=== PATIENT | female | born 1975 | race Caucasian/White ===

== ENCOUNTER → 2022-02-11 11:36 | Outpatient (CLI) | payer BC, SELFPAY ==
[2022-02-11 12:00] LABS: Add Manual Diff / Slide Review NO; Basophils Absolute Auto 0 /uL (0-100); Basophils Percent Auto 0.4 % (0-2); Eosinophils Absolute Auto 300 /uL (0-450); Eosinophils Percent Auto 4.9 % (2-4); Hemoglobin 12.3 g/dL (12.0-16.0); Lymphocytes Absolute Auto 2000 /uL (1100-4500); Lymphocytes Percent Auto 36.2 % (25-40); Mean Corpuscular HGB Conc 33.1 % (30-36); Mean Corpuscular Hemoglobin 29.2 PG (26-34); Mean Corpuscular Volume 88.2 fL (80-100); Monocytes Absolute Auto 300 /uL (0-900); Monocytes Percent Auto 6.2 % (3-14); Neutrophils Absolute Auto 2900 /uL (1500-7000); Neutrophils Percent Auto 52.3 % (50-75); Platelet Count 277 X10^3/uL (150-400); Red Cell Distribution Width 13.5 % (11.6-14.8); White Blood Cell Count 5.5 X10^3/uL (4.5-11.0)
[2022-02-11 13:25] LABS: Alanine Aminotransferase 17 IU/L (<35); Albumin 4.1 g/dL (3.5-5.0); Albumin Globulin Ratio 1.5 (1.0-2.8); Alkaline Phosphatase 95 U/L (38-126); Aspartate Aminotransferase 28 IU/L (14-36); BUN Creatinine Ratio 11.9 (6-22); Bilirubin Total 0.5 mg/dL (0.2-1.3); Blood Urea Nitrogen 8 mg/dL (7-17); Calcium 9.1 mg/dL (8.4-10.2); Carbon Dioxide 29 mmol/L (22-32); Chloride 103 mmol/L (98-107); Cholesterol 159 mg/dL (140-199); Estimated Glomerular Filt Rate > 60 mL/min (>60); Globulin 2.7 g/dL (1.7-4.1); Glucose 94 mg/dL (70-100); HDL Cholesterol 76 mg/dL (40-60); HEMOLYSIS < 15 (0-50); LDL Cholesterol Calculated 71 mg/dL (<100); Potassium 4.5 mmol/L (3.4-5.1); Sodium 136 mmol/L (137-145); Total Protein 6.8 g/dL (6.3-8.2); Triglycerides 58 mg/dL (35-150)
[2022-02-11 13:50] LABS: TSH w/ Reflex to FT4 < 0.02 uIU/mL (0.47-4.68)
[2022-02-11 14:21] LABS: Free T4, Direct Thyroxine 2.04 ng/dL (0.78-2.19)
== END ==
PROVIDERS: PCP Family Medicine; Referring Provider Family Medicine; Visit Provider Family Medicine
DX: E03.9 Hypothyroidism, unspecified (principal); F43.10 Post-traumatic stress disorder, unspecified
CPT/HCPCS: 36415; 80053; 80061; 84439; 84443; 85025

== ENCOUNTER 2022-04-14 20:26 | Emergency (ER) | payer BC, OTHER, SELFPAY ==
[2022-04-14 20:27] VITALS: BP 157/85; PULSE 72; RESP 20; TEMP 36.6; O2SAT 98; BMI 21.9
[2022-04-14 21:00] LABS: UR Morphine/Opiate cutoff 300 Negative (Negative); Ur Creatinine Normal (Normal); Ur Specific Gravity Normal (Normal); Urine Amphetamines Negative (Negative); Urine Barbiturates Negative (Negative); Urine Benzodiazepines Negative (Negative); Urine Cocaine Negative (Negative); Urine MDMA Negative (Negative); Urine Methadone Negative (Negative); Urine Methamphetamines Negative (Negative); Urine Oxycodone Negative (Negative); Urine Phencyclidine Negative (Negative); Urine Tetrahydrocannabinol Positive (Negative); Urine Tricyclic Antidepressant Negative (Negative); Urine pH Normal (Normal)
[2022-04-14 21:13] LABS: Add Manual Diff / Slide Review NO; Basophils Absolute Auto 100 /uL (0-100); Basophils Percent Auto 0.7 % (0-2); Eosinophils Absolute Auto 200 /uL (0-450); Eosinophils Percent Auto 2.4 % (2-4); Hematocrit 37.9 % (36-46); Hemoglobin 12.7 g/dL (12.0-16.0); Lymphocytes Absolute Auto 2600 /uL (1100-4500); Lymphocytes Percent Auto 33.3 % (25-40); Mean Corpuscular HGB Conc 33.5 % (30-36); Mean Corpuscular Hemoglobin 30.3 PG (26-34); Mean Corpuscular Volume 90.5 fL (80-100); Monocytes Absolute Auto 400 /uL (0-900); Monocytes Percent Auto 5.8 % (3-14); Neutrophils Absolute Auto 4400 /uL (1500-7000); Neutrophils Percent Auto 57.8 % (50-75); Platelet Count 263 X10^3/uL (150-400); Red Blood Cell Count 4.19 X10^6/uL (4.0-5.2); Red Cell Distribution Width 13.9 % (11.6-14.8); White Blood Cell Count 7.7 X10^3/uL (4.5-11.0)
[2022-04-14 21:18] LABS: Acetaminophen < 10 ug/mL (10-30); Alanine Aminotransferase 15 IU/L (<35); Albumin 4.4 g/dL (3.5-5.0); Albumin Globulin Ratio 1.4 (1.0-2.8); Alkaline Phosphatase 82 U/L (38-126); Aspartate Aminotransferase 29 IU/L (14-36); BUN Creatinine Ratio 8.3 (6-22); Bilirubin Total 0.3 mg/dL (0.2-1.3); Blood Urea Nitrogen 5 mg/dL (7-17); Calcium 8.8 mg/dL (8.4-10.2); Carbon Dioxide 22 mmol/L (22-32); Chloride 104 mmol/L (98-107); Estimated Glomerular Filt Rate > 60 mL/min (>60); Ethanol (ETOH) < 10 mg/dL; Globulin 3.2 g/dL (1.7-4.1); Glucose 94 mg/dL (70-100); HEMOLYSIS < 15 (0-50); Salicylate 2.9 mg/dL (<20); Sodium 137 mmol/L (137-145); Total Protein 7.6 g/dL (6.3-8.2)
[2022-04-14 21:34] LABS: COVID19 -Nasal RAPID Negative (Negative)
[2022-04-14 21:54] LABS: Thyroid Stimulating Hormone < 0.015 uIU/mL (0.47-4.68)
[2022-04-14 21:58] VITALS: BP 171/92; PULSE 78; RESP 20; O2SAT 99
[2022-04-14 23:08] LABS: Appearance Urine UA CLEAR; Bilirubin Urine UA NEGATIVE (NEGATIVE); Color Urine UA YELLOW; Glucose Urine UA NEGATIVE (Negative); Ketones Urine UA 2+ (NEGATIVE); Leukocyte Esterase Urine UA NEGATIVE (NEGATIVE); Nitrite Urine UA NEGATIVE (Negative); Occult Blood Urine UA NEGATIVE (Negative); Protein Urine UA NEGATIVE (Negative); Specific Gravity Urine UA 1.015 (1.000-1.035); Urobilinogen Urine UA 0.2 E.U./dL (0.2); pH Urine UA 6.5 (4.5-8.0)
[2022-04-14 23:10] LABS: Pregnancy Test Urine Negative (Negative)
[2022-04-14 23:20] LABS: Bacteria Urine Occasional (0-1); Culture Indicated Urine Cult Not Indicated; RBC Urine None Seen (0-5/HPF); Squamous Epithelial Cell Urine 1-5 /HPF (0-5/HPF); WBC Urine 0-1/HPF (0-5/HPF)
--- NOTE | 2022-04-15 02:04 | ED.PSYCH ---
HPI - Psych General Chief Complaint: Psychiatric Symptoms Stated Complaint: mental health eval Time Seen by Provider: 04/14/22 22:03 History of Present Illness HPI Narrative: 46F former smoker with history of hypothyroid, anxiety, PTSD presents for evaluation of feeling manic, requesting hospitalization. 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 She had been living in [place] and moved here after she retired during [employer] She denies any access to mental health providers but states she is very well supported by her 2 daughters, 1 of which is a social media job titles. She states that she was at a meeting a few days ago and felt triggered and since then has been unable to sleep and feels herself spiraling and is afraid that she is moving on the past 3 becoming gravely disabled. She currently denies any suicidal or homicidal ideation. She denies any change in medications or missed doses. She denies any recent trauma or head injury. She is had no fever or chills nor nausea or vomiting. She states that she has not slept in 6 days. Related Data Previous Rx's Medication Instructions Recorded clonazepam 0.5 mg tablet 0.5 mg PO BID PRN panic #60 tabs 01/21/22 estradiol 0.1 mg/24 hr semiweekly 1 patch transdermal 2XW #8 ea 01/21/22 transdermal patch levothyroxine 200 mcg tablet 200 mcg PO DAILY #90 tabs 03/01/22 escitalopram oxalate 10 mg tablet 10 mg PO DAILY #90 tabs 03/04/22 (Lexapro) Allergies Allergy/AdvReac Type Severity Reaction Status Date / Time meperidine [From Demerol] AdvReac vomiting Verified 01/21/22 11:30 Review of Systems Review of Systems Narrative: GENERAL: Denies chills, fatigue, malaise, fever, sweats. HEENT: Denies sinus pain, ear pain, sore throat, difficulty swallowing, dizziness. RESPIRATORY: Denies dyspnea, cough, wheezing, hemoptysis, sputum. CARDIOVASCULAR: Denies chest pain, palpitations, orthopnea, edema, GASTROINTESTINAL: Denies nausea, vomiting, abdominal pain, diarrhea, constipation, melena. : Denies dysuria, frequency, incontinence, hematuria, urinary retention. MUSCULOSKELETAL: denies weakness, joint pain, or bony pain SKIN: Denies rash, skin lesions, or other NEUROLOGIC: Denies weakness, headache, numbness, change in speech, confusion, seizures, incoordination. PSYCHIATRIC: See HPI 12 point review of systems is negative except for those stated above Patient History Medical History Acquired hypothyroidism Allergies Anxiety Benign familial tremor Chicken pox Fibroids (~2019) Ovarian cyst (~2019) PTSD (post-traumatic stress disorder) Shoulder pain (~2014) Thyroid nodule (~2006) Surgical History Anesthesia History of cholecystectomy (~2001) History of left hip replacement (~2013) History of right hip replacement (~2016) History of thyroidectomy (~2008) S/P bilateral breast reduction (~1992) Status post hysterectomy (~2019) Social History Smoking Status: Former smoker Smoking Status: Former smoker Exam Narrative Exam Narrative: GENERAL: [46] year old patient appears stated age. Patient anxious, rapid pressured speech, difficult to redirect HEAD: Atraumatic. Normocephalic. EYES: Pupils equal round and reactive. Extraocular motions intact. No scleral icterus. No injection or drainage. ENT: Nose without bleeding, purulent drainage. Throat without erythema, tonsillar hypertrophy or exudate. Airway patent. NECK: Trachea midline. Non tender CARDIOVASCULAR: Regular rate and rhythm without murmurs, gallops, or rubs. RESPIRATORY: Clear to auscultation. Breath sounds equal bilaterally. No wheezes, rales, or rhonchi. GASTROINTESTINAL: Abdomen soft, non-tender, nondistended. EXTREMITIES: No edema or joint tenderness. BACK: Nontender without deformity or crepitance. No flank tenderness. NEURO: AOx3. SKIN: No rash or erythema of visible areas Initial Vital Signs Initial Vital Signs: Vital Signs Temperature 97.8 F 04/14/22 20:27 Pulse Rate 72 04/14/22 20:27 Respiratory Rate 20 04/14/22 20:27 Blood Pressure 157/85 H 04/14/22 20:27 Pulse Oximetry 98 04/14/22 20:27 Oxygen Delivery Method 04/14/22 20:27 Course Orders Ordered: ED Orders 04/14/22 23:00 Test Urine Stat Urinalysis and Microscopic Stat Discontinued Medications Lorazepam (Lorazepam 2 Mg/Ml Inj) 1 mg IV NOW ONE Stop: 04/15/22 02:18 Last Admin: 04/15/22 03:03 Dose: Not Given Documented By: MONTSERRAT Lorazepam (Lorazepam 0.5 Mg Tablet) 1 mg PO NOW ONE Stop: 04/15/22 02:54 Last Admin: 04/15/22 03:00 Dose: 1 mg Documented By: MONTSERRAT Vital Signs Vital signs: Vital Signs - 8 hr 04/14/22 20:27 04/14/22 21:58 Temperature 97.8 F Pulse Rate 72 78 Respiratory Rate 20 20 Blood Pressure 157/85 H 171/92 H Pulse Oximetry 98 99 Oxygen Delivery Method Room Air Room Air MDM - Psych Lab Data Result diagrams: 04/14/22 20:48 04/14/22 20:48 Labs: Lab Results 04/14/22 04/14/22 04/14/22 Range/Units 20:48 20:48 20:48 WBC 7.7 (4.5-11.0) X10^3/uL RBC 4.19 (4.0-5.2) X10^6/uL Hgb 12.7 (12.0-16.0) g/dL Hct 37.9 (36-46) % MCV 90.5 (80-100) fL MCH 30.3 (26-34) PG MCHC 33.5 (30-36) % RDW 13.9 (11.6-14.8) % Plt Count 263 (150-400) X10^3/uL Neut % (Auto) 57.8 (50-75) % Lymph % (Auto) 33.3 (25-40) % [place] % (Auto) 5.8 (3-14) % Eos % (Auto) 2.4 (2-4) % Baso % (Auto) 0.7 (0-2) % Neut # (Auto) 4400 (2355-7341) /uL Lymph # (Auto) 2600 (7557-3193) /uL [place] # (Auto) 400 (0-900) /uL Eos # (Auto) 200 (0-450) /uL Baso # (Auto) 100 (0-100) /uL Sodium 137 (137-145) mmol/L Potassium 4.0 (3.4-5.1) mmol/L Chloride 104 (98-107) mmol/L Carbon Dioxide 22 (22-32) mmol/L BUN 5 L (7-17) mg/dL Creatinine 0.60 (0.52-1.04) mg/dL Estimated GFR > 60 (>60) mL/min BUN/Creatinine Ratio 8.3 (6-22) Glucose 94 (70-100) mg/dL Calcium 8.8 (8.4-10.2) mg/dL Total Bilirubin 0.3 (0.2-1.3) mg/dL AST 29 (14-36) IU/L ALT 15 (<35) IU/L Alkaline Phosphatase 82 (38-126) U/L Total Protein 7.6 (6.3-8.2) g/dL Albumin 4.4 (3.5-5.0) g/dL Globulin 3.2 (1.7-4.1) g/dL Albumin/Globulin Ratio 1.4 (1.0-2.8) TSH < 0.015 L (0.47-4.68) uIU/mL Free T4 1.70 (0.78-2.19) ng/dL Urine Color Urine Appearance Urine pH (4.5-8.0) Ur Specific [place] (1.000-1.035) Urine Protein (Negative) Urine Glucose (UA) (Negative) g/dL Urine Ketones (NEGATIVE) Urine Occult Blood (Negative) Urine Nitrate (Negative) Urine Bilirubin (NEGATIVE) Urine Urobilinogen (0.2) E.U./dL Ur Leukocyte Esterase (NEGATIVE) Urine RBC (0-5/HPF) Urine WBC (0-5/HPF) Ur Squamous Epith Cells (0-5/HPF) Urine Bacteria (None) Ur Culture Indicated? Urine Test (Negative) Salicylates 2.9 (<20) mg/dL U Opiates 300ng/mL cut (Negative) Ur Oxycodone Screen (Negative) Urine Methadone Screen (Negative) Acetaminophen < 10 (10-30) ug/mL Ur Barbiturates Screen (Negative) U Tricyclic Antidepress (Negative) Ur Phencyclidine Scrn (Negative) Ur Amphetamines Screen (Negative) U Methamphetamines Scrn (Negative) Ur MDMA Scrn (Ecstasy) (Negative) U Benzodiazepines Scrn (Negative) Urine Cocaine Screen (Negative) U Marijuana (THC) Screen (Negative) Ethyl Alcohol < 10 ( - 10) mg/dL SARS-CoV-2 (PCR) (Negative) 04/14/22 04/14/22 04/14/22 Range/Units 20:48 20:48 23:00 WBC (4.5-11.0) X10^3/uL RBC (4.0-5.2) X10^6/uL Hgb (12.0-16.0) g/dL Hct (36-46) % MCV (80-100) fL MCH (26-34) PG MCHC (30-36) % RDW (11.6-14.8) % Plt Count (150-400) X10^3/uL Neut % (Auto) (50-75) % Lymph % (Auto) (25-40) % [place] % (Auto) (3-14) % Eos % (Auto) (2-4) % Baso % (Auto) (0-2) % Neut # (Auto) (4883-3912) /uL Lymph # (Auto) (3208-6868) /uL [place] # (Auto) (0-900) /uL Eos # (Auto) (0-450) /uL Baso # (Auto) (0-100) /uL Sodium (137-145) mmol/L Potassium (3.4-5.1) mmol/L Chloride (98-107) mmol/L Carbon Dioxide (22-32) mmol/L BUN (7-17) mg/dL Creatinine (0.52-1.04) mg/dL Estimated GFR (>60) mL/min BUN/Creatinine Ratio (6-22) Glucose (70-100) mg/dL Calcium (8.4-10.2) mg/dL Total Bilirubin (0.2-1.3) mg/dL AST (14-36) IU/L ALT (<35) IU/L Alkaline Phosphatase (38-126) U/L Total Protein (6.3-8.2) g/dL Albumin (3.5-5.0) g/dL Globulin (1.7-4.1) g/dL Albumin/Globulin Ratio (1.0-2.8) TSH (0.47-4.68) uIU/mL Free T4 (0.78-2.19) ng/dL Urine Color Yellow Urine Appearance Clear Urine pH 6.5 (4.5-8.0) Ur Specific [place] 1.015 (1.000-1.035) Urine Protein Negative (Negative) Urine Glucose (UA) Negative (Negative) g/dL Urine Ketones 2+ H (NEGATIVE) Urine Occult Blood Negative (Negative) Urine Nitrate Negative (Negative) Urine Bilirubin Negative (NEGATIVE) Urine Urobilinogen 0.2 (0.2) E.U./dL Ur Leukocyte Esterase Negative (NEGATIVE) Urine RBC None seen (0-5/HPF) Urine WBC 0-1/hpf (0-5/HPF) Ur Squamous Epith Cells 1-5 /hpf (0-5/HPF) Urine Bacteria Occasional (0-1) (None) Ur Culture Indicated? Cult not indicated Urine Test (Negative) Salicylates (<20) mg/dL U Opiates 300ng/mL cut Negative (Negative) Ur Oxycodone Screen Negative (Negative) Urine Methadone Screen Negative (Negative) Acetaminophen (10-30) ug/mL Ur Barbiturates Screen Negative (Negative) U Tricyclic Antidepress Negative (Negative) Ur Phencyclidine Scrn Negative (Negative) Ur Amphetamines Screen Negative (Negative) U Methamphetamines Scrn Negative (Negative) Ur MDMA Scrn (Ecstasy) Negative (Negative) U Benzodiazepines Scrn Negative (Negative) Urine Cocaine Screen Negative (Negative) U Marijuana (THC) Screen Positive H (Negative) Ethyl Alcohol ( - 10) mg/dL SARS-CoV-2 (PCR) Negative (Negative) 04/14/22 Range/Units 23:00 WBC (4.5-11.0) X10^3/uL RBC (4.0-5.2) X10^6/uL Hgb (12.0-16.0) g/dL Hct (36-46) % MCV (80-100) fL MCH (26-34) PG MCHC (30-36) % RDW (11.6-14.8) % Plt Count (150-400) X10^3/uL Neut % (Auto) (50-75) % Lymph % (Auto) (25-40) % [place] % (Auto) (3-14) % Eos % (Auto) (2-4) % Baso % (Auto) (0-2) % Neut # (Auto) (0932-4925) /uL Lymph # (Auto) (4499-0356) /uL [place] # (Auto) (0-900) /uL Eos # (Auto) (0-450) /uL Baso # (Auto) (0-100) /uL Sodium (137-145) mmol/L Potassium (3.4-5.1) mmol/L Chloride (98-107) mmol/L Carbon Dioxide (22-32) mmol/L BUN (7-17) mg/dL Creatinine (0.52-1.04) mg/dL Estimated GFR (>60) mL/min BUN/Creatinine Ratio (6-22) Glucose (70-100) mg/dL Calcium (8.4-10.2) mg/dL Total Bilirubin (0.2-1.3) mg/dL AST (14-36) IU/L ALT (<35) IU/L Alkaline Phosphatase (38-126) U/L Total Protein (6.3-8.2) g/dL Albumin (3.5-5.0) g/dL Globulin (1.7-4.1) g/dL Albumin/Globulin Ratio (1.0-2.8) TSH (0.47-4.68) uIU/mL Free T4 (0.78-2.19) ng/dL Urine Color Urine Appearance Urine pH (4.5-8.0) Ur Specific [place] (1.000-1.035) Urine Protein (Negative) Urine Glucose (UA) (Negative) g/dL Urine Ketones (NEGATIVE) Urine Occult Blood (Negative) Urine Nitrate (Negative) Urine Bilirubin (NEGATIVE) Urine Urobilinogen (0.2) E.U./dL Ur Leukocyte Esterase (NEGATIVE) Urine RBC (0-5/HPF) Urine WBC (0-5/HPF) Ur Squamous Epith Cells (0-5/HPF) Urine Bacteria (None) Ur Culture Indicated? Urine Test Negative (Negative) Salicylates (<20) mg/dL U Opiates 300ng/mL cut (Negative) Ur Oxycodone Screen (Negative) Urine Methadone Screen (Negative) Acetaminophen (10-30) ug/mL Ur Barbiturates Screen (Negative) U Tricyclic Antidepress (Negative) Ur Phencyclidine Scrn (Negative) Ur Amphetamines Screen (Negative) U Methamphetamines Scrn (Negative) Ur MDMA Scrn (Ecstasy) (Negative) U Benzodiazepines Scrn (Negative) Urine Cocaine Screen (Negative) U Marijuana (THC) Screen (Negative) Ethyl Alcohol ( - 10) mg/dL SARS-CoV-2 (PCR) (Negative) Discharge Plan Departure Prescriptions: No Action levothyroxine 200 mcg tablet 200 mcg PO DAILY Qty: 90 3RF estradiol 0.1 mg/24 hr patch semiweekly 1 patch transdermal 2XW Qty: 8 3RF Rx Instructions: apply 1 patch for 3 days alternating with 1 patch for 4 days each week for 3 wks per 4-wk cycle clonazepam 0.5 mg tablet 0.5 mg PO BID PRN (Reason: panic) Qty: 60 0RF escitalopram oxalate [Lexapro] 10 mg tablet 10 mg PO DAILY Qty: 90 2RF Referrals: Gennaro Daily MD [Primary Care Provider] -
[2022-04-15] MEDS: LORazepam 0.5 MG TABLET 1 MG PO ×2 (03:00→16:26)
--- NOTE | 2022-04-15 07:49 | PC.NURSE ---
pt awake, calm, cooperative. reporting hunger, provided with snacks per diet order and notified of breakfast tray to be delivered soon. pt up to BR, ambulatory, steady gait. denies additional needs at this time.
[2022-04-15 13:24] VITALS: O2SAT 97
[2022-04-15 13:25] VITALS: BP 122/61; PULSE 75; O2SAT 97
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
[2022-04-15 14:24] LABS: Creatine Kinase 103 U/L (30-135); Magnesium 1.9 mg/dL (1.6-2.3)
--- NOTE | 2022-04-15 16:07 | CM.SWNOTE ---
LINOTYPE MECHANIC note LINOTYPE MECHANIC calls [facility] for voluntary bed census. LINOTYPE MECHANIC calls [facility] intake and it is reported that they can review patient, LINOTYPE MECHANIC faxes clinicals for review. [facility] also requests EKG, CK, and Magnesium. LINOTYPE MECHANIC calls [facility], it was reported that they can review patient, LINOTYPE MECHANIC faxes clinicals for review and intake speaks with patient. Donnie at [facility] reports that patient is accepted at [facility] by accepting provider Dr. Bullard, with an ETA of 1999. Nurse to Nurse (Ph. # [phone]) LINOTYPE MECHANIC calls [facility] and cancels referral. LINOTYPE MECHANIC reviews patient's acceptance to [facility] with patient and daughter who indicate agreement and understanding. BLS transport set up for 1645 warehouse order picker time. Plan: Patient to transfer to [facility] via BLS this evening
[2022-04-15 17:50] VITALS: PULSE 82; O2SAT 99
[2022-04-15 17:51] VITALS: BP 130/73; PULSE 82; O2SAT 100
[2022-04-15 19:02] VITALS: TEMP 37
== END 2022-04-15 19:11 ==
PROVIDERS: Emergency Medicine; Emergency Provider Emergency Medicine; PCP Family Medicine
DX: F43.10 Post-traumatic stress disorder, unspecified (principal); Z20.822 Contact with and (suspected) exposure to COVID-19; R07.9 Chest pain, unspecified
CPT/HCPCS: 36415; 80053; 80305; 80320; 80329; 81001; 81025; 82550; 83735; 84439; 84443; 85025; 87635; 93005; 99284; C9803; G0480

== ENCOUNTER → 2023-09-27 11:37 | Outpatient (CLI) | payer OTHER, MEDICAID, SELFPAY ==
[2023-09-27 12:29] LABS: Hematocrit 38.4 % (36-46); Mean Corpuscular Hemoglobin 31.1 PG (26-34); Mean Corpuscular Volume 91.6 fL (80-100); Platelet Count 229 X10^3/uL (150-400); Red Blood Cell Count 4.19 X10^6/uL (4.0-5.2); White Blood Cell Count 7.3 X10^3/uL (4.5-11.0)
[2023-09-27 12:40] LABS: Alanine Aminotransferase 15 IU/L (<35); Albumin 4.3 g/dL (3.5-5.0); Albumin Globulin Ratio 1.3 (1.0-2.8); Alkaline Phosphatase 73 U/L (38-126); Aspartate Aminotransferase 26 IU/L (14-36); BUN Creatinine Ratio 8.3 (6-22); Bilirubin Total 0.6 mg/dL (0.2-1.3); Blood Urea Nitrogen 5 mg/dL (7-17); Calcium 9.2 mg/dL (8.4-10.2); Carbon Dioxide 30 mmol/L (22-32); Chloride 105 mmol/L (98-107); Cholesterol 174 mg/dL (140-199); Estimated Glomerular Filt Rate > 60 mL/min (>60); Globulin 3.3 g/dL (1.7-4.1); Glucose 88 mg/dL (70-100); HDL Cholesterol 82 mg/dL (40-60); HEMOLYSIS < 15 (0-50); LDL Cholesterol Calculated 75 mg/dL (<100); Potassium 3.7 mmol/L (3.4-5.1); Sodium 138 mmol/L (137-145); Total Protein 7.6 g/dL (6.3-8.2); Triglycerides 84 mg/dL (35-150)
[2023-09-27 13:10] LABS: TSH w/ Reflex to FT4 < 0.02 uIU/mL (0.47-4.68)
[2023-09-27 13:44] LABS: Free T4, Direct Thyroxine 2.44 ng/dL (0.78-2.19)
[2023-09-28 08:08] LABS: Apolipoprotein B 68 mg/dL (<90)
== END ==
PROVIDERS: PCP Family Medicine; Referring Provider Family Medicine; Visit Provider Family Medicine
DX: Z00.00 Encounter for general adult medical examination without abnormal findings (principal); E03.9 Hypothyroidism, unspecified; Z90.710 Acquired absence of both cervix and uterus
CPT/HCPCS: 36415; 80053; 80061; 82172; 84439; 84443; 85027

== ENCOUNTER → 2023-11-08 14:07 | Outpatient (CLI) | payer OTHER, MEDICAID, SELFPAY ==
[2023-11-08 15:40] LABS: TSH w/ Reflex to FT4 < 0.02 uIU/mL (0.47-4.68)
[2023-11-08 16:11] LABS: Free T4, Direct Thyroxine 2.32 ng/dL (0.78-2.19)
== END ==
PROVIDERS: PCP Family Medicine; Referring Provider Family Medicine; Visit Provider Family Medicine
DX: E03.9 Hypothyroidism, unspecified (principal)
CPT/HCPCS: 36415; 84439; 84443

== ENCOUNTER → 2023-11-10 10:55 | Outpatient (CLI) | payer OTHER, MEDICAID, SELFPAY ==
--- NOTE | 2023-11-10 10:55 | DI.MG.S_ITS ---
BILATERAL DIGITAL SCREENING MAMMOGRAM 3D/2D WITH CAD: 11/10/2023 CLINICAL: Routine screening. Baseline exam. No prior exams were available for comparison. There are scattered areas of fibroglandular density in both breasts (category b / 25%-50% glandular tissue). Current study was also evaluated with a Computer Aided Detection (CAD) system. There is a focal asymmetry in the right breast at 10 o'clock posterior depth. No other significant masses, calcifications, or other findings are seen in either breast. IMPRESSION: INCOMPLETE: NEEDS ADDITIONAL IMAGING EVALUATION The focal asymmetry in the right breast is indeterminate. Additional views with possible ultrasound are recommended. Based on the Tyrer Cuzick model (a risk assessment model) the patient's lifetime risk is 7.0% and her 10 year risk is 1.6%. According to the ACR, ACS, and NCCN guidelines, an annual breast MRI exam along with mammogram is recommended if the patient's lifetime risk is 20% or greater. This exam was interpreted at Station ID: [id number]. NOTE: For mammograms, a report in lay terms will be sent to the patient. Approximately 15% of breast malignancies will not be visualized mammographically. In the management of a palpable breast mass, a negative mammogram must not discourage biopsy of a clinically suspicious lesion. Electronically Signed By: Jeremias Gregorio M.D. lc/:11/10/2023 12:05:21 letter sent: Additional Imaging Needed ACR BI-RADS Category 0: Incomplete 3340F
== END ==
PROVIDERS: PCP Family Medicine; Referring Provider Family Medicine; Visit Provider Family Medicine
DX: Z12.31 Encounter for screening mammogram for malignant neoplasm of breast (principal); N64.89 Other specified disorders of breast
CPT/HCPCS: 77063; 77067

== ENCOUNTER 2023-11-17 09:57 | Day surgery (SDC) | payer OTHER, MEDICAID, SELFPAY ==
--- NOTE | 2023-11-17 | PATH_ITS ---
[facility] Accession Number: [id number] No. of containers..01 Tissue . 01 Material submitted: . colon - DESCENDING COLON POLYP . 01 Diagnosis: DESCENDING COLON POLYP: Tubular adenoma. STO 11/24/2023 1129 Local . 01 Electronically signed: . Cedrick Ball MD, Pathologist NPI- [id number] . 01 Gross description: . DESCENDING COLON POLYP: Received in formalin is 1 fragment(s) of doe, soft tissue measuring 0.3 x 0.3 x 0.2 cm submitted entirely in 1 cassette(s) /EM 11/24/2023 1129 Local . 01 Pathologist provided ICD-10: D12.4 . 01 CPT . 422465 Specimen Comment: A courtesy copy of this report has been sent to [phone] Performed at: 01 [facility] [address] [place] [address], [place], [place] [id number] MD Cedrick Ball MD Phone: [phone]
[2023-11-17 10:26] VITALS: BP 135/86; PULSE 68; RESP 16; TEMP 36.1; O2SAT 99
[2023-11-17] MEDS: LACTATED RINGERS 1,000 ML 42 ML IV (10:33)
--- NOTE | 2023-11-17 11:16 | PM.HP.1 ---
History of Present Illness History of Present Illness Date Patient Seen: 11/17/23 Time Patient Seen: 11:16 Chief complaint: [facility] [place] Narrative: First colonoscopy for colon cancer screening. No family history or symptoms of concern FOR[facility]LY [facility] Medical History Allergies Anxiety Benign familial tremor Shoulder pain (~2014) Chicken pox Ovarian cyst (~2019) Fibroids (~2019) Thyroid nodule (~2006) Acquired hypothyroidism PTSD (post-traumatic stress disorder) Surgical History Anesthesia History of right hip replacement (~2016) History of left hip replacement (~2013) History of thyroidectomy (~2008) History of cholecystectomy (~2001) S/P bilateral breast reduction (~1992) Status post hysterectomy (~2019) Social History Smoking Status: Former smoker Meds Home Medications and Allergies Home Medications Medication Instructions Recorded Confirmed Type lorazepam 0.5 mg tablet 0.5 mg PO BID PRN anxiety #20 tabs 07/11/23 11/17/23 Rx estradiol 0.1 mg/24 hr semiweekly See Rx Instructions .Route 08/08/23 11/17/23 Rx transdermal patch .COMPLEX #8 ea dextroamphetamine-amphetamine 15 15 mg PO DAILY PRN adhd #30 tabs 09/22/23 09/22/23 Rx mg tablet (Adderall) dextroamphetamine-amphetamine ER 30 mg PO DAILY #30 caps 09/22/23 09/22/23 Rx 30 mg 24hr capsule,extend release (Adderall XR) dextroamphetamine-amphetamine ER 30 mg PO DAILY #30 caps 09/22/23 11/17/23 Rx 30 mg 24hr capsule,extend release (Adderall XR) levothyroxine 200 mcg tablet 200 mcg PO DAILY #90 tabs 09/22/23 09/22/23 Rx olanzapine 5 mg tablet See Rx Instructions .Route 09/22/23 11/17/23 Rx .COMPLEX #180 tabs gabapentin 300 mg capsule 300 mg PO BID #60 caps 09/29/23 11/17/23 Rx divalproex 500 mg tablet,delayed See Rx Instructions .Route 11/06/23 11/17/23 Rx release .COMPLEX #90 tabs levothyroxine 150 mcg tablet 150 mcg PO DAILY #90 tabs 11/10/23 11/17/23 Rx dextroamphetamine-amphetamine 15 15 mg PO DAILY 11/17/23 11/17/23 History mg tablet (Adderall) Allergies Allergy/AdvReac Type Severity Reaction Status Date / Time meperidine [From Demerol] AdvReac vomiting Verified 11/17/23 10:19 Review of Systems Review of Systems ROS: Yes All systems reviewed with the patient and are negative except as otherwise documented Exam Vital Signs (past 8 hours): - 11/17/23 10:26 Temperature 97 F L Pulse Rate 68 Respiratory Rate 16 Blood Pressure 135/86 Pulse Oximetry 99 Oxygen Delivery Method Room Air Oxygen Flow Rate 0 Oxygen Delivery Method Room Air Oxygen Flow Rate 0 Const General: cooperative and ill appearing Nutritional Appearance: average body habitus HENMT Head: normocephalic and atraumatic Eyes General: appearance normal, both eyes and all related structures Periorbital: periorbital findings normal Sclera: sclerae normal Neck Neck: trachea midline and No JVD Resp Effort & Inspection: normal respiratory effort and able to speak in complete sentences Cardio Rate: regular rate Rhythm: regular rhythm GI Inspection: non-distended Palpation: soft and No tender Skin General: elasticity normal and turgor normal Neuro General: patient alert, patient awake and patient oriented x3 Psych Appearance: grossly normal Mental Status: mental status grossly normal Judgment: judgment good Assessment & Plan Assessment & Plan narrative: colonoscopy with anesthesia for colon cancer screening Time Spent With Patient Time with patient: less than 30 minutes
--- NOTE | 2023-11-17 11:46 | PM.OP.COLON ---
Operative Date/Time/Diagnoses Date of procedure: 11/17/23 Time of procedure: 11:46 Pre-op diagnosis: Colon cancer screening Post-op diagnosis: same Procedure & Clinicians Study performed: Colonoscopy with cold forceps polypectomy Same procedure as scheduled: Yes Indications: Colon cancer screening Surgeon: Gemini Brito Procedure Notes Procedure in detail: Preop diagnosis: Colon cancer screening Postop diagnosis: Same Operative procedure: Colonoscopy with cold forceps polypectomy using anesthesia Surgeon: Asha Brito MD Findings: Single polyp 2 mm sessile in the descending colon. Procedure: Patient placed in a lateral position. Rectal exam performed showing normal tone no masses. Colonoscope inserted into the rectum and advanced to ileocecal valve with minimal difficulty. Insufflation extraction scope including retroflex and the above findings. Impression: Single polyp in the descending colon 2 mm and sessile. They actually be benign. Plan: Await pathology report to determine frequency of screening. Findings: polyp(s) (2 mm descending colon polyp) Specimen(s): other Complications: none Post-procedure Recommendations: Colonoscopy in 10 years Follow up: as needed Disposition: PACU
[2023-11-17 11:54] VITALS: BP 136/79; PULSE 60; RESP 14; TEMP 36.4; O2SAT 100
[2023-11-17 11:59] VITALS: BP 145/84; PULSE 68; RESP 18; O2SAT 100
[2023-11-17 12:04] VITALS: BP 130/77; RESP 58; O2SAT 100
[2023-11-17 12:10] VITALS: BP 135/80; PULSE 70; RESP 18; O2SAT 100
[2023-11-17 12:25] VITALS: BP 130/74; PULSE 78; RESP 16; TEMP 36.2; O2SAT 98
== END 2023-11-17 12:35 | disposition home or self-care (01) ==
PROVIDERS: PCP Family Medicine; Referring Provider Surgery; Visit Provider Surgery
PROC: 0DJD8ZZ Inspection of Lower Intestinal Tract, Via Natural or Artificial Opening Endoscopic (ICD-10-PCS; CPT 45378; principal; 2023-11-17 10:45)
DX: Z12.11 Encounter for screening for malignant neoplasm of colon (principal); D12.4 Benign neoplasm of descending colon
CPT/HCPCS: 45380; J1200; J2405; J2704

== ENCOUNTER → 2023-11-18 15:10 | Outpatient (CLI) | payer OTHER, MEDICAID, SELFPAY ==
--- NOTE | 2023-11-18 15:11 | DI.US.S_ITS ---
PROCEDURE: US THYROID INDICATIONS: Confirm thyroid tissue is absent TECHNIQUE: Real-time scanning was performed of the thyroid gland, with image documentation. COMPARISON: None. FINDINGS: Thyroid: No sonographic evidence of thyroid tissue in the surgical bed. No suspicious lymph node or mass. Bilateral internal jugular veins are patent. IMPRESSION: No sonographic evidence of thyroid tissue. No suspicious lymph node or mass. Dictated by: Chio Arriaga M.D. on 11/19/2023 at 8:38 Approved by: Chio Arriaga M.D. on 11/19/2023 at 8:39
== END ==
PROVIDERS: PCP Family Medicine; Referring Provider Family Medicine; Visit Provider Family Medicine
DX: E89.0 Postprocedural hypothyroidism (principal); R79.89 Other specified abnormal findings of blood chemistry
CPT/HCPCS: 76536

== ENCOUNTER → 2023-11-28 08:57 | Outpatient (CLI) | payer OTHER, MEDICAID, SELFPAY ==
--- NOTE | 2023-11-28 08:58 | DI.MG.S_ITS ---
UNILATERAL RIGHT DIGITAL DIAGNOSTIC MAMMOGRAM 3D/2D WITH ADDITIONAL VIEWS: 11/28/2023 CLINICAL: Additional evaluation requested from prior study. Comparison is made to exam dated: 11/10/2023 mammogram - [facility]. The right breast is heterogeneously dense, which may obscure small masses (category c / 51-75% glandular tissue). The patient is status post reduction right breast. There is a focal asymmetry in the right breast at 10 o'clock posterior depth. This is less prominent. No other significant masses or calcifications are seen in the breast. IMPRESSION: BENIGN The focal asymmetry in the right breast is consistent with fibroglandular tissue and is benign. There is no mammographic evidence of malignancy. Return to annual mammogram screening schedule is recommended. Based on the Tyrer Cuzick model (a risk assessment model) the patient's lifetime risk is 7.8% and her 10 year risk is 1.8%. According to the ACR, ACS, and NCCN guidelines, an annual breast MRI exam along with mammogram is recommended if the patient's lifetime risk is 20% or greater. This exam was interpreted at Station ID: [id number]. NOTE: For mammograms, a report in lay terms will be sent to the patient. Approximately 15% of breast malignancies will not be visualized mammographically. In the management of a palpable breast mass, a negative mammogram must not discourage biopsy of a clinically suspicious lesion. Electronically Signed By: Beni chavez/chris:11/28/2023 09:25:07 letter sent: Normal Exam ACR BI-RADS Category 2: Benign Finding(s) [id number]
== END ==
PROVIDERS: PCP Family Medicine; Referring Provider Family Medicine; Visit Provider Family Medicine
DX: R92.8 Other abnormal and inconclusive findings on diagnostic imaging of breast (principal); R92.331 Mammographic heterogeneous density, right breast
CPT/HCPCS: 77065; G0279

== ENCOUNTER → 2023-12-25 12:43 | Outpatient (CLI) | payer OTHER, MEDICAID, SELFPAY ==
[2023-12-25 14:43] LABS: Free T3, Triiodothyronine Free 3.35 pg/mL (2.77-5.27); Free T4, Direct Thyroxine 1.59 ng/dL (0.78-2.19)
[2023-12-25 15:04] LABS: Thyroid Stimulating Hormone < 0.015 uIU/mL (0.47-4.68)
[2023-12-27 17:36] LABS: Thyroglobulin Antibodies < 1.0 IU/mL (0.0-0.9)
== END ==
PROVIDERS: PCP Family Medicine; Referring Provider Family Medicine; Visit Provider Family Medicine
DX: R79.89 Other specified abnormal findings of blood chemistry (principal); E89.0 Postprocedural hypothyroidism; F41.9 Anxiety disorder, unspecified
CPT/HCPCS: 36415; 84432; 84439; 84443; 84481; 86800